=== PATIENT | female | born 1945 | race Caucasian/White ===

== ENCOUNTER 2020-08-21 08:14 | Outpatient (CLI) | payer MEDICARE ==
[~2020-08-21] VITALS: Ht 152.4 cm; Wt 47.7 kg
[2020-08-21 12:00] VITALS: BP 122/57
[2020-08-21] MEDS ORDERED: EPINEPHrine INJECTION 1 MG/ML AMP IM PRN (12:30)
[2020-08-21] MEDS ORDERED: diphenhydrAMINE 50 MG/ML INJ (BENADRYL) IV PRN (12:30)
[2020-08-21] MEDS ORDERED: BAMLANIVIMAB 700 MG in NS 200 ML IV ONE (12:30)
[2020-08-21 14:05] VITALS: BP 131/57
== END 2020-08-21 14:56 | disposition home or self-care (01) ==
LOC: INFUSION 08:14
PROVIDERS: ATTEND Nurse Practitioner Family
DX: U07.1 COVID-19 (principal)

== ENCOUNTER → 2020-11-05 | Outpatient (CLI) | payer MEDICARE ==
[~2020-11-05] MED LIST: CATHETER FLUSH 10 ML SYR IV PRN; HOLD METFORMIN - RECEIVED CONTRAST 20 ML VIAL IV SCH; IOHEXOL 350 MG/ML 100 ML (OMNIPAQUE 350) VIAL IV ONE; NS 100 ML (IVPB) BAG IV ONE
--- NOTE | 2020-11-05 11:33 | Diagnostic Imaging Report ---
PROCEDURE: CT abdomen and pelvis with contrast. TECHNIQUE: Multiple contiguous axial images were obtained through the abdomen and pelvis after administration of intravenous contrast. Auto Exposure Controls were utilized during the CT exam to meet ALARA standards for radiation dose reduction. All CT scans use one or more of the following dose optimizing techniques: automated exposure control, MA and/or KvP adjustment based on patient size and exam type or iterative reconstruction. INDICATION: Generalized abdominal pain, low back pain, bloating of three months' duration. COMPARISON: I have no relevant comparison. FINDINGS: The lung bases are clear. The gallbladder, liver, and bile ducts are unremarkable. Spleen, adrenals, and pancreas are unremarkable. The unobstructed kidneys appeared normal. The aortoiliac and mesenteric vessels are patent and nonaneurysmal. The urinary bladder is unremarkable. The uterus and adnexa are unremarkable. There is a minute amount of pelvic free fluid isolated to the cul-de-sac. No loculated fluid collection. There is no appendicitis or diverticulitis. No perienteric or pericolonic edema. No focal inflammatory changes. IMPRESSION: Minute pelvic free fluid without loculated collection. No bowel, biliary, or urinary tract obstruction. No mass, adenopathy, or focal inflammatory process. Dictated by: Dictated on workstation # [id number]
== END ==
LOC: RAD FS 09:20
PROVIDERS: ATTEND Nurse Practitioner
DX: R14.0 Abdominal distension (gaseous) (principal); M54.5 Low back pain; R10.84 Generalized abdominal pain; R10.30 Lower abdominal pain, unspecified
CPT/HCPCS: 74177

== ENCOUNTER 2021-03-26 10:49 | Outpatient (CLI) | payer MEDICARE ==
[~2021-03-26] VITALS: Ht 152.4 cm; Wt 47.6 kg
[2021-03-26 10:34] VITALS: BP_SYST 121; BP_SYST 134; BP_DIAS 60; BP_DIAS 87
[2021-03-26] MEDS ORDERED: ONDANSETRON 4 MG/2 ML (SDV) Z0FRAN IV PRN (11:15)
[2021-03-26] MEDS ORDERED: CASIRIVIMAB/IMDEVIMAB 1,200 MG in NS (IVPB) 250 ML IV ONE (11:15)
[2021-03-26] MEDS ORDERED: EPINEPHrine INJECTION 1 MG/ML AMP IM PRN (11:15)
[2021-03-26] MEDS ORDERED: diphenhydrAMINE 50 MG/ML INJ (BENADRYL) IV PRN (11:15)
[2021-03-26] MEDS ORDERED: ACETAMINOPHEN 500 MG TAB (TYLENOL) PO PRN (11:15)
[2021-03-26 12:21] VITALS: BP 134/56
== END 2021-03-26 13:21 | disposition home or self-care (01) ==
LOC: INFUSION 10:49
PROVIDERS: ATTEND Nurse Practitioner Community Health
DX: Z23 Encounter for immunization (principal); U07.1 COVID-19